=== PATIENT | female | born 1950 | race Caucasian/White ===

== ENCOUNTER → 2023-12-01 16:02 | Outpatient (REF) | payer MEDICARE, OTHER, SELFPAY | LOC: WDC 16:02 | PROVIDERS: ATTENDING PHYSICIAN Internal Medicine | DX: Z12.31 Encounter for screening mammogram for malignant neoplasm of breast (principal) | CPT/HCPCS: 77063; 77067 ==

== ENCOUNTER → 2024-03-14 15:46 | Outpatient (REF) | payer MEDICARE, OTHER, SELFPAY | LOC: HWRAD 15:46 | PROVIDERS: ATTENDING PHYSICIAN Internal Medicine | DX: R26.9 Unspecified abnormalities of gait and mobility (principal); Z86.73 Personal history of transient ischemic attack (TIA), and cerebral infarction without residual deficits | CPT/HCPCS: 70450 ==

== ENCOUNTER → 2024-03-24 10:50 | Outpatient (REF) | payer MEDICARE, OTHER, SELFPAY ==
[2024-03-24 12:15] LABS: % Basophils 0.6 % (0-2); % Immature Granulocytes 0.4 % (0-0.5); % Lymphocytes 27.8 % (20.5-51.1); % Monocytes 8.5 % (1.7-9.3); % Neutrophils 59.7 % (42.2-75.2); Absolute Eosinophils 0.2 10^3/uL (0-0.7); Absolute Lymphocytes 1.9 10^3/uL (1.2-3.4); Absolute Monocytes 0.6 10^3/uL (0.1-0.6); Hematocrit 43.7 % (37.0-47.0); Hemoglobin 14.8 g/dL (12.0-16.0); Mean Corp Hgb Conc. 33.9 g/dL (33.0-37.0); Mean Corpuscular Hgb 30.6 pg (27.0-31.0); Mean Corpuscular Volume 90.3 fL (81.0-99.0); Nucleated Red Blood Cells % 0 %; Platelet Count 374 10^3/uL (130-400); Red Blood Cell Count 4.84 10^6/uL (4.20-5.40); Red Cell Dist. Width 14.8 % (11.5-14.5); White Blood Cell Count 6.7 10^3/uL (4.8-10.8)
[2024-03-24 12:51] LABS: ALT (SGPT) 22 U/L (0-35); AST (SGOT) 24 U/L (14-36); Albumin 4.7 g/dl (3.5-5.0); Alkaline Phosphatase 100 U/L (38-126); Blood Urea Nitrogen 13 mg/dl (7-17); Calcium 10.7 mg/dl (8.4-10.2); Carbon Dioxide 25 mmol/L (22-30); Chloride 101 mmol/L (98-107); Glucose 132 mg/dl (70-99); HDL Cholesterol 72 mg/dl; LDL Cholesterol, Calculated 110 mg/dl; Potassium 4.7 mmol/L (3.5-5.1); Sodium 143 mmol/L (135-145); Total Bilirubin 0.5 mg/dl (0.2-1.3); Total Cholesterol 236 mg/dl (50-199); Total Protein 7.2 g/dl (6.3-8.2); Triglyceride 271 mg/dl (10-149); Very Low Density Lipoprotein 54 mg/dl (0-30); eGFR > 60.00
[2024-03-24 13:21] LABS: Glycohemoglobin (HgbA1c) 7.1 % (4.0-5.6)
[2024-03-24 14:29] LABS: Microalbumin, Random Urine 1.2 mg/dl (0.6-1.7); Microalbumin/creatinine Ratio 52.4 mg/g
== END ==
LOC: REG 10:50
PROVIDERS: ATTENDING PHYSICIAN Internal Medicine
DX: E11.69 Type 2 diabetes mellitus with other specified complication (principal)
CPT/HCPCS: 36415; 80053; 80061; 82043; 82570; 83036; 84443; 85025

== ENCOUNTER → 2024-03-31 11:33 | Outpatient (REF) | payer MEDICARE, OTHER, SELFPAY | LOC: MRI 3T 11:33 | PROVIDERS: ATTENDING PHYSICIAN Internal Medicine | DX: R26.9 Unspecified abnormalities of gait and mobility (principal); R29.898 Other symptoms and signs involving the musculoskeletal system; Z86.73 Personal history of transient ischemic attack (TIA), and cerebral infarction without residual deficits | CPT/HCPCS: 70551 ==

== ENCOUNTER → 2024-08-23 18:56 | Outpatient (REF) | payer MEDICARE, OTHER, SELFPAY | LOC: MRI 18:56 | PROVIDERS: ATTENDING PHYSICIAN Psychiatry & Neurology Neurology; FAMILY PHYSICIAN Internal Medicine | DX: I63.9 Cerebral infarction, unspecified (principal); I67.89 Other cerebrovascular disease | CPT/HCPCS: 70544; 70551 ==

== ENCOUNTER → 2024-08-24 06:34 | Outpatient (REF) | payer MEDICARE, OTHER, SELFPAY | LOC: MRI 3T 06:34 | PROVIDERS: ATTENDING PHYSICIAN Psychiatry & Neurology Neurology; FAMILY PHYSICIAN Internal Medicine | DX: I67.89 Other cerebrovascular disease (principal) | CPT/HCPCS: 70547 ==

== ENCOUNTER → 2024-10-27 11:14 | Outpatient (REF) | payer MEDICARE, OTHER, SELFPAY ==
[2024-10-27 11:40] LABS: % Basophils 0.7 % (0-2); % Eosinophils 3.9 % (0-6); % Immature Granulocytes 0.4 % (0-0.5); % Lymphocytes 33.2 % (20.5-51.1); % Monocytes 9.1 % (1.7-9.3); % Neutrophils 52.7 % (42.2-75.2); Absolute Basophils 0.1 10^3/uL (0-0.2); Absolute Eosinophils 0.3 10^3/uL (0-0.7); Absolute Lymphocytes 2.4 10^3/uL (1.2-3.4); Absolute Monocytes 0.7 10^3/uL (0.1-0.6); Absolute Neutrophils 3.9 10^3/uL (1.4-6.5); Hematocrit 46.6 % (37.0-47.0); Hemoglobin 15.7 g/dL (12.0-16.0); Mean Corp Hgb Conc. 33.7 g/dL (33.0-37.0); Mean Corpuscular Hgb 30.8 pg (27.0-31.0); Mean Corpuscular Volume 91.6 fL (81.0-99.0); Mean Platelet Volume 8.7 fL (7.4-10.4); Nucleated Red Blood Cells % 0 %; Platelet Count 411 10^3/uL (130-400); Red Blood Cell Count 5.09 10^6/uL (4.20-5.40); Red Cell Dist. Width 14.8 % (11.5-14.5); White Blood Cell Count 7.4 10^3/uL (4.8-10.8)
[2024-10-27 12:09] LABS: ALT (SGPT) 17 U/L (0-35); AST (SGOT) 18 U/L (14-36); Albumin 4.3 g/dl (3.5-5.0); Alkaline Phosphatase 96 U/L (38-126); Blood Urea Nitrogen 16 mg/dl (7-17); Calcium 10.4 mg/dl (8.4-10.2); Carbon Dioxide 28 mmol/L (22-30); Chloride 104 mmol/L (98-107); Glucose 118 mg/dl (70-99); Potassium 5.1 mmol/L (3.5-5.1); Sodium 141 mmol/L (135-145); Total Bilirubin 0.5 mg/dl (0.2-1.3); eGFR > 60.00
[2024-10-27 14:25] LABS: Glycohemoglobin (HgbA1c) 6.3 % (4.0-5.6)
== END ==
LOC: REG 11:14
PROVIDERS: ATTENDING PHYSICIAN Internal Medicine
DX: Z23 Encounter for immunization (principal); E11.69 Type 2 diabetes mellitus with other specified complication; F31.10 Bipolar disorder, current episode manic without psychotic features, unspecified; E78.5 Hyperlipidemia, unspecified; Z86.73 Personal history of transient ischemic attack (TIA), and cerebral infarction without residual deficits; F17.200 Nicotine dependence, unspecified, uncomplicated
CPT/HCPCS: 36415; 80053; 83036; 85025

== ENCOUNTER → 2024-11-21 13:36 | Outpatient (REF) | payer MEDICARE, OTHER, SELFPAY | LOC: WDC 13:36 | PROVIDERS: ATTENDING PHYSICIAN Internal Medicine | DX: Z12.31 Encounter for screening mammogram for malignant neoplasm of breast (principal) | CPT/HCPCS: 77063; 77067 ==

== ENCOUNTER 2025-03-10 07:44 | Inpatient (IN) | payer MEDICARE, OTHER, SELFPAY ==
[2025-03-10 03:13] VITALS: BMI 37.6
[2025-03-10 03:30] VITALS: BP 109/67
[2025-03-10 03:31] LABS: Hematocrit 38.5 % (37.0-47.0); Hemoglobin 12.9 g/dL (12.0-16.0); Mean Corp Hgb Conc. 33.5 g/dL (33.0-37.0); Mean Corpuscular Volume 91.7 fL (81.0-99.0); Nucleated Red Blood Cells % 0 %; Platelet Count 491 10^3/uL (130-400); Red Cell Dist. Width 14.6 % (11.5-14.5)
[2025-03-10 03:55] LABS: ALT (SGPT) 22 U/L (0-35); AST (SGOT) 15 U/L (14-36); Albumin 3.7 g/dl (3.5-5.0); Alkaline Phosphatase 114 U/L (38-126); Blood Urea Nitrogen 11 mg/dl (7-17); Calcium 9.2 mg/dl (8.4-10.2); Carbon Dioxide 27 mmol/L (22-30); Chloride 105 mmol/L (98-107); Estimated Creatinine Clearance 93 ml/min; Glucose 173 mg/dl (70-99); Potassium 4.1 mmol/L (3.5-5.1); Sodium 139 mmol/L (135-145); Total Protein 6.2 g/dl (6.3-8.2); eGFR > 60.00
[2025-03-10 04:08] LABS: Troponin I < 0.012 ng/ml
--- NOTE | 2025-03-10 04:33 | ED.GENMED ---
History of Present Illness
General
Chief Complaint: Chest Pain
Source: patient
Exam Limitations: none
Time Seen by Provider: 03/10/25 04:06
Nursing documentation reviewed up to this point in time: agreed with
History of Present Illness
History of Present Illness:
74-year-old female with past medical history of TIA, atrial fibrillation, hyperlipidemia, diabetes, GERD, anxiety who presents to the ER for evaluation of shortness of breath and chest pain. Patient reports that symptoms started tonight while she
was lying in bed around 2 AM she says she woke up and felt very short of breath and felt like she was gasping for air. She says she felt significant heaviness in her chest like something was sitting on her chest. She called EMS to bring her to the
hospital. EMS gave her aspirin and nitroglycerin as well as a DuoNeb. She says that that seemed to help with the heaviness in her chest but she still feels markedly short of breath. Aside from shortness of breath she says she has a cough�she says
that she went on a cruise 2 weeks ago and had mild cough on the last 2 days of the cruise but it had generally been improving until tonight where it seems a bit worse. She denies any recent fevers or chills. She denies any swelling or pain in the
legs. She denies any GI symptoms. She denies similar symptoms in the past.
Past History
Past History
ED Past Medical History: Cancer (Breast), GERD, Hypercholesterolemia, NIDDM, Psychiatric and Other (TIA)
ED Past Surgical History: Gynecological and Other
Social History
Tobacco: Smoker (Occasional)
Living: with family
Review of Systems
Review of Systems
All Other Systems: ROS reviewed and negative except as documented in HPI and ROS
Constitutional: Denies fever or chills
Respiratory: Reports cough and trouble breathing
Cardiac: Reports chest pain; Denies palpitations
ABD/GI: Denies abdominal pain, nausea or vomiting
: Denies flank pain
Musculoskeletal: Denies edema, neck pain or back pain
Neurological: Denies dizzy or headache
Phy Exam
Physical Exam
Physical Exam:
General: Awake, alert, oriented x3; no acute distress
Head: Normocephalic, atraumatic
Eyes: Conjunctiva normal, sclera anicteric
Throat: Airway intact, handling secretions
Neck: Trachea midline, no JVD
Lungs: Clear to auscultation bilaterally, no wheezing, rales, rhonchi; patient is tachypneic, hypoxic requiring 2 L nasal cannula
Heart: Regular rate and rhythm, no murmurs, gallops, or rubs
Abd: Soft, non distended, nontender
Neuro: Grossly intact
Extremities: No edema in extremities, no calf tenderness, equal pulses in all extremities
Scores
Heart Failure Risk
Heart Failure Risk Score: Not Applicable
Heart Score for Chest Pain Patients
STEMI patient?: Not applicable
Withdrawal Assessment of Alcohol
Withdrawal Assessment Completed?: Not applicable
Course
Orders/Labs/Results
Orders:
Orders
03/10/25 03:05
Electrocardiogram (*1) Urgent
Reason for Study: Other
Other Reason for Exam: Respiratory Distress
Cardiac Monitoring- Treatment ONCE
EKG- Treatment ONCE
IV Insert/Care/Rem.- Treatment PRN
CR Chest - 2 Views Urgent
Comment:
Reason For Exam: respiratory distress
O2 Therapy [RESP] Urgent
Titrate/Wean O2 to maintain O2 sat greater than (%): 93
Special Instructions: TO MAINTAIN CONTINUOUS O2 SATS >/= 93%
Pulse Ox/cont/shift [RESP] Urgent
Quantity: 1
Special Instructions: continuous pulse ox
03/10/25 03:22
Complete Blood Count/With Diff Urgent
Comprehensive Metabolic Panel Urgent
NT-proBNP Urgent
Troponin I Urgent
03/10/25 04:30
Azithromycin 500 mg/250 ml [Zithromax Infusion] 500 mg in 250 ml IV NOW
CefTRIAXone [Rocephin] 1,000 mg IV NOW STA
03/10/25 06:30
Troponin I Urgent
Abnormal Lab Results
03/10/25
03:22
WBC 17.7 H 10^3/uL
(4.8-10.8)
RDW 14.6 H %
(11.5-14.5)
Plt Count 491 H 10^3/uL
(130-400)
Abs Immat Gran (auto) 0.3 H 10^3/uL
(0-0.05)
Absolute Neuts (auto) 14.1 H 10^3/uL
(1.4-6.5)
Absolute Monos (auto) 0.9 H 10^3/uL
(0.1-0.6)
Immature Gran % 1.6 H %
(0-0.5)
Neutrophils % 79.4 H %
(42.2-75.2)
Lymphocytes % 11.3 L %
(20.5-51.1)
Glucose 173 H mg/dl
(70-99)
Total Protein 6.2 L g/dl
(6.3-8.2)
03/10/25 03:22
03/10/25 03:22
Vital Signs
Initial and Last Documented VS:
Initial Vital Signs
Pulse Ox
96
03/10/25 03:13
Last Documented Vital Signs
Pulse Resp BP Pulse Ox
92 28 109/67 91
03/10/25 03:45 03/10/25 03:45 03/10/25 03:30 03/10/25 03:45
MDM/Problems Addressed
Differential Diagnosis Includes:
Pneumonia, bronchitis, ACS, CHF, pulmonary embolism, anxiety/panic, GERD
MDM/Problems Addressed:
74-year-old female presents for evaluation of shortness of breath and chest heaviness associated with cough. Notably hypoxic and tachypneic requiring 2 L nasal cannula. Physical exam as above. EKG shows sinus rhythm not acutely ischemic. Labs
were sent off including a CBC which shows a leukocytosis to 17.7. Predominant neutrophils. CMP no clinically significant abnormalities. Troponin undetectable x 1�will repeat. proBNP not significantly elevated. Chest x-ray reviewed by me shows
left lower lobe pneumonia. With hypoxia and multiple SIRS criteria we will plan to admit for continued treatment. Will provide IV antibiotics. Discussed with hospitalist for admission.
*Radiology
Radiology exam reviewed: preliminary read by ED provider
*Pulse Oximetry
SaO2: 91
Nasal Cannula flow liters per minute: 4
Patient hypoxic: yes (86%)
*EKG
Interpreted by ED Provider?: Yes
Heart Rate: 88
Rate: normal
Rhythm: sinus
[place]: left axis deviation
Interval: normal interval
QRS Pattern: normal QRS
Ischemia: no ischemia
*Critical Care Note
Total Time (30-74mins, 75-104mins- exclusive of procedures): Not Applicable
Data Reviewed
Review of Other/Old Records Reveals: Labs and Records
Source: patient, records and ambulance crew
Patient Management
Discussion with other providers: Hospitalist (Discussed with hospitalist)
Escalation/DeEscalation of care consider admission/obs:
Admission indicated
ED Attending Note
-
Portions of this chart may have been created with voice recognition software.� Occasional wrong word or��sound alike� substitutions may have occurred due to the inherent limitations of voice recognition software.
Discharge Plan
Departure
Patient Disposition: Admit
Date of Disposition: 03/10/25
Time of Disposition: 04:38
Admit to doctor: Isiah
Presentation/result/management discussed w/ accepting MD/DO: Hospitalist
Discharge Problem:
Pneumonia, Acute hypoxic respiratory failure
Prescriptions:
No Action
lamotrigine [Lamictal] 150 MG tablet
150 mg PO HS
clopidogrel 75 MG tablet
75 mg PO HS
Biotin
10,000 mcg PO DAILY
Vitamin D3:
4,000 units PO DAILY
anastrozole 1 MG tablet
1 mg PO DAILY
metformin 500 mg Tablet
500 mg PO BID
rosuvastatin 10 mg Tablet
10 mg PO DAILY
calcium carb-D3-mag [id number] [phone] kh-dvnp-yh-mg Tablet
1 tab PO MOWEFR
mecobalamin (vitamin B12) [B12 Active] 1,000 mcg Tablet,Chewable
1,000 mcg PO DAILY
Ozempic 0.25 mg or 0.5 mg (2 mg/3 mL) Pen Injector
0.5 mg SC FR
fiber
3 cap PO Q48H
mupirocin 2 % ointment
1 applic topical BID Qty: 1 0RF
Patient Comments:
started treatment thursday01/04/23 and completed BID, last took at home 01/07/23 in am
aspirin 325 mg Tablet
325 mg PO DAILY Qty: 1 0RF
docusate sodium 100 mg Capsule
100 mg PO BID Qty: 1 0RF
magnesium hydroxide 400 mg/5 mL Suspension
30 ml PO DAILYPRN PRN (Reason: constipation) Qty: 30 0RF
sennosides [Senna Laxative] 8.6 mg Tablet
17.2 mg PO BID Qty: 2 0RF
Saccharomyces boulardii [Florastor] 250 mg capsule
250 mg PO BID Qty: 1 0RF
polyethylene glycol 3350 [Miralax] 17 gram Powder In Packet
17 g PO DAILY Qty: 0 0RF
alprazolam 1 MG tablet
1 mg PO PRN PRN (Reason: anxiety/sleep) Qty: 0 0RF
pantoprazole 40 MG tablet,delayed release (DR/EC)
40 mg PO HS Qty: 0 0RF
Rx Instructions:
take 12h apart from Plavix=--blocks absorption
hydrocodone-acetaminophen 5-325 mg tablet
1 tab PO Q6H PRN (Reason: 1 tab moderate pain or 2 if severe) Qty: 28 0RF
Rx Instructions:
Dx orthopedic surgery
ongoing therapy
cefadroxil 500 mg capsule
500 mg PO BID Qty: 14 0RF
Rx Instructions:
*Take w/ food
*Take w/ probiotic
*POST-OP USE
ondansetron [ondansetron] 4 mg tablet,disintegrating
4 mg PO Q6H PRN (Reason: n/v) Qty: 20 1RF
Rx Instructions:
take 1/2h b/f [place] if recurrent nausea
Referrals:
Maria Esther Renee NP [Family Provider, Internal Medicine]
Interventions
Interventions:
*Risk Screen - Suicide Last Done: 03/10/25 03:05
*General Assessment Last Done: 03/10/25 03:13
*Neglect/Abuse Screening Last Done: 03/10/25 03:05
*ED- Fall Risk Assessment Last Done: 03/10/25 03:13
*ED COVID-19 Vaccine History Last Done: 03/10/25 03:13
ED- Cardiac Assessment Last Done: 03/10/25 03:13
Discharge Date and Time
Print Language: NEPALI
[2025-03-10] MEDS: ROCEPHIN 1000 MG IV (05:07)
[2025-03-10] MEDS: ZITHROMAX INFUSION 250 IV (05:08)
[2025-03-10 05:23] LABS: COVID-19 Antigen Negative (Negative)
--- NOTE | 2025-03-10 06:50 | HPS.HSE ---
Family Physician
-
Family Physician: Maria Esther Renee
Chief Complaint
-
Chest pain / SOB
History of Present Illness
Patient is a 74y F with PMH significant for prior TIA, hypertension and diet-controlled DM who presents to ED complaining of chest pain and dyspnea that woke her from sleep. Patient reports cough / cold symptoms about 10 days ago. Has felt
improved for the past week. This evening woke around 2 AM with chest heaviness and unable to get her breath. She states that dyspnea as quite severe. No prior history of similar symptoms. She presented to the ED for further evaluation.
At the time of my examination, patient states that she feels much improved.
She traveled for a cruise about 2 weeks ago. No other recent travel.
Patient is a current some-day smoker with long history of smoking and > 30 pack years total use.
Medical History
Past Medical History
Past Medical History: Reports Other
Additional Past Medical History:
TIA x 2
Bipolar Disorder
Migraines
Diet-Controlled DM-II
Obesity
Breast Cancer
Past Surgical History: Reports Other
Additional Past Surgical History:
Lap Band / Removal
SELAM / BSO
Cataracts
Left DANILO
Left Lumpectomy
Rectal Abscess (x 2)
Social History
Tobacco: Smoker (Currentn some day smoker. > 30 pack years total.)
Alcohol: None
Drug: None
Family History
Family History: Not pertinent
Allergies / Home Medications
Allergies reflects when Allergies were last updated in [facility].
Home Medications with original date entered in [facility]
Allergy/Medication List:
Allergies
Allergy/AdvReac Type Severity Reaction Status Date / Time
oxycodone Allergy patient Verified 03/10/25 03:04
recently
took
without
any
problems
tetracycline Allergy Rash/ITCHIN Verified 03/10/25 03:04
G
Home Medications
Biotin 10,000 mcg PO DAILY 01/16/21
Vitamin D3: 4,000 units PO DAILY 01/16/21
calcium 333 mg-vit D3 200 unit-magnesium 133 mg-zinc 5 mg tablet 1 tab PO MOWEFR 12/04/22
mecobalamin (vitamin B12) 1,000 mcg chewable tablet (B12 Active) 1,000 mcg PO DAILY 12/04/22
clopidogrel 75 mg tablet 75 mg PO DAILY 03/10/25
lamotrigine 100 mg tablet (Lamictal) 50 mg PO Q48H 03/10/25
lamotrigine 100 mg tablet (Lamictal) 100 mg PO Q48H 03/10/25
Review of Systems
-
History Source: Patient
A 12 point ROS was completed and negative except as noted: Yes
Constitutional: Reports Fatigue; Denies Fever or Chills
EENT: Denies Sore Throat
Respiratory: Reports Cough and Trouble Breathing
Cardiac: Reports Chest Pain; Denies Palpitations or Syncope
Abdomen/GI: Denies Abdominal Pain, Nausea, Vomiting or Diarrhea
: Denies Dysuria or Frequency
Musculoskeletal: Denies Joint Pain or Edema
Neurological: Denies Dizzy or Headache
Physical Exam
Vital Signs
Vital Signs
Temp Pulse Resp BP Pulse Ox
98.3 F 80 24 109/67 92
03/10/25 04:34 03/10/25 05:15 03/10/25 05:15 03/10/25 03:30 03/10/25 05:15
Physical Exam
General: Other (74y F in no acute distress)
HEENT: Moist mucous membranes and PERRLA
Respiratory: Other (Bibasilar rhonchi / wheezing.)
Cardiac: S1/S2 and Regular Rhythm; No Murmur
GI: Soft, Non Tender, Non Distended and Normal Bowel Sounds
Musculoskeletal: No Clubbing, No Cyanosis and No Edema
Neuro: AO x 3
Laboratory Results
-
03/10/25 03:22
03/10/25 03:22
Laboratory Results
Total Bilirubin 0.4 mg/dl (0.2-1.3) 03/10/25 03:22
AST 15 U/L (14-36) 03/10/25 03:22
ALT 22 U/L (0-35) 03/10/25 03:22
Alkaline Phosphatase 114 U/L (38-126) 03/10/25 03:22
Troponin I < 0.012 ng/ml 03/10/25 03:22
Impression/Plan
-
A/P: Patient is a 74y F with PMH significant for TIA and bipolar depression who presents to ED complaining of chest heaviness and SOB.
Bibasilar Pneumonia
Sepsis secondary to the above
- Admit for further evaluation and treatment.
- Patient presents with leukocytosis, tachycardia, tachypnea and CXR / CT showing basilar opacities.
- COVID / flu negative in the ED.
- CTA with no obvious evidence of PE (formal report pending).
- Continue abx with ceftriaxone and azithromycin.
- Supportive care including nebs, O2, etc.
- Follow for clinical improvement.
Atypical Chest Pain
- Likely secondary to underlying pulmonary infectious process.
- Initial troponin undetectable and EKG without evident ischemia.
- Follow serial troponin. Monitor for any new / recurrent symptoms.
ASCVD / Prior TIA
- Stable. Continue clopidogrel.
Diet-Controlled DM-II
- Stable. Continue DM diet.
- Follow glucose and cover with SSI if needed.
- Update A1C.
Bipolar Disorder
- Stable. Patient reports that she has been very slowly weaning off of Lamictal.
- Continue current dose.
Obesity due to excess calories
- Affects all aspects of care.
- Encourage healthy diet and increased exercise with goal of weight loss.
DVT Prophylaxis: Lovenox
Code Status: Full
[2025-03-10 08:10] LABS: Troponin I < 0.012 ng/ml
[2025-03-10] MEDS: TYLENOL 650 MG PO ×2 (09:42→12:59)
[2025-03-10] MEDS: ZOFRAN 4 MG IV (09:45)
[2025-03-10 11:54] VITALS: BP 122/74; BMI 34.5
[2025-03-10 12:14] LABS: Glucose - Point of Care 131 mg/dl (70-99)
[2025-03-10 12:19] VITALS: BMI 34.5
--- NOTE | 2025-03-10 12:57 | PTOTSP ---
Speech Language Pathology
Pt seen for clinical bedside swallow evaluation. Pt endorsed 6 months of dysphagia, which has been stable. She describes the following: food sticking mid-chest, coughing with liquids at times, constant globus sensation (even in absence of P.O.
intake), hoarse vocal quality. Pt with hx of esophagitis on EGD in 2021, and CT chest showed esophageal wall thickening with questionable esophagitis. This date, P.O. trials of puree, regular solids, and thin liquids provided. Adequate
mastication, bolus formation, and A-P transit noted with no oral residue. No overt signs of aspiration. Suspect esophageal etiology of symptoms. If GI workup completed either inpatient or outpatient and is unrevealing, can complete outpatient VSE.
Recommend:
(1) GI consult, either inpatient or outpatient
(2) Can consider outpatient VSE if GI workup unrevealing
(3) Regular solids/thin liquids
(4) General aspiration precautions
(5) Esophageal precautions
(6) Meds as tolerated
(7) FITTER PLACER to sign off. Please reconsult as indicated
[2025-03-10] MEDS: NSS 1000 IV (12:58)
[2025-03-10] MEDS: MUCINEX 600 MG PO ×2 (12:59→20:32)
[2025-03-10] MEDS: PLAVIX 75 MG PO (12:59)
[2025-03-10] MEDS: COMPAZINE 5 MG IV (12:59)
[2025-03-10 13:00] LABS: Troponin I < 0.012 ng/ml
[2025-03-10] MEDS: DUONEB 3 ML INH ×3 (13:24→18:10)
[2025-03-10] MEDS: NOVOLOG FLEXPEN-LOW RESISTANCE SC ×2 (13:36→16:55)
[2025-03-10 15:00] VITALS: BP 132/68
[2025-03-10 16:51] LABS: Glucose - Point of Care 122 mg/dl (70-99)
[2025-03-10] MEDS: LOVENOX 40 MG SC (17:18)
[2025-03-10 18:35] LABS: Troponin I < 0.012 ng/ml
[2025-03-10 20:08] VITALS: BP 121/74
[2025-03-10] MEDS: LAMICTAL 100 MG PO (20:32)
[2025-03-10] MEDS: TESSALON PERLES 200 MG PO (21:16)
[2025-03-10 21:35] LABS: Glucose - Point of Care 135 mg/dl (70-99)
[2025-03-10] MEDS: ROBITUSSIN 200 MG PO (23:21)
[2025-03-10 23:51] VITALS: BP 127/70
[2025-03-11] VITALS (8 sets, daily range): BP systolic 100–131; BP diastolic 57–73; PULSE 77–82
[2025-03-11 00:16] LABS: Troponin I < 0.012 ng/ml
[2025-03-11] MEDS: TESSALON PERLES 200 MG PO ×3 (02:54→21:44)
[2025-03-11] MEDS: NSS 1000 IV ×2 (05:28→17:48)
[2025-03-11] MEDS: DUONEB 3 ML INH ×4 (07:24→20:10)
[2025-03-11 08:07] LABS: Glucose - Point of Care 170 mg/dl (70-99)
[2025-03-11] MEDS: ROBITUSSIN 200 MG PO ×2 (08:13→22:44)
[2025-03-11] MEDS: ROCEPHIN 1000 MG IV (08:14)
[2025-03-11] MEDS: STERILE WATER FOR INJECTION 10 ML IV (08:14)
[2025-03-11] MEDS: ZITHROMAX 250 MG PO (08:14)
[2025-03-11] MEDS: PLAVIX 75 MG PO (08:14)
[2025-03-11] MEDS: MUCINEX 600 MG PO ×2 (08:14→19:53)
[2025-03-11 08:15] LABS: Hematocrit 34.8 % (37.0-47.0); Hemoglobin 11.9 g/dL (12.0-16.0); Mean Corp Hgb Conc. 34.2 g/dL (33.0-37.0); Mean Corpuscular Volume 89.5 fL (81.0-99.0); Platelet Count 412 10^3/uL (130-400); Red Cell Dist. Width 14.9 % (11.5-14.5)
[2025-03-11] MEDS: NOVOLOG FLEXPEN-LOW RESISTANCE SC ×3 (08:28→18:40)
[2025-03-11 09:04] LABS: Blood Urea Nitrogen 7 mg/dl (7-17); Calcium 8.6 mg/dl (8.4-10.2); Carbon Dioxide 22 mmol/L (22-30); Chloride 108 mmol/L (98-107); Estimated Creatinine Clearance 103 ml/min; Glucose 124 mg/dl (70-99); HDL Cholesterol 38 mg/dl; LDL Cholesterol, Calculated 67 mg/dl; Potassium 4.3 mmol/L (3.5-5.1); Sodium 137 mmol/L (135-145); Very Low Density Lipoprotein 19 mg/dl (0-30); eGFR > 60.00
[2025-03-11 10:35] LABS: Glycohemoglobin (HgbA1c) 6.5 % (4.0-5.6)
[2025-03-11 12:09] LABS: Glucose - Point of Care 78 mg/dl (70-99)
--- NOTE | 2025-03-11 12:30 | W.PN.HOSP.TC ---
Today's Communication/Plan
-
Continue with ceftriaxone and Zithromax
Follow culture data
Continue with nebulizers.
Follow telemetry for any arrhythmias.
Assessment / Plan
Assessment / Plan
A/P: Patient is a 74y F with PMH significant for TIA and bipolar depression who presents to ED complaining of chest heaviness and SOB.
Bibasilar Pneumonia
Sepsis secondary to the above
- Patient presents with leukocytosis, tachycardia, tachypnea and CXR / CT showing basilar opacities.
- COVID / flu negative in the ED.
- CTA with no obvious evidence of PE but showed bibasilar consolidation concerning for pneumonia
- Continue abx with ceftriaxone and azithromycin.
- Supportive care including nebs, O2, etc.
- Follow for clinical improvement.
- If continued wheezing we will consider steroids
Atypical Chest Pain
- Likely secondary to underlying pulmonary infectious process.
- Initial troponin undetectable and EKG without evident ischemia.
- Follow serial troponin. Monitor for any new / recurrent symptoms.
- Patient primary symptom for the hospital was chest pressure, palpitation and acute shortness of breath. She has history of an arrhythmia before apparently. Rule out arrhythmia. Rule out A-fib. Continue director furniture.
Esophageal wall thickening-noted on chest CT on admission. Patient has history of reflux and sometimes sensation of globus and food getting stuck. She had an endoscopy 2 years ago which showed superficial squamous cell epithelium with vascular
congestion in the distal esophagus. I will start on daily PPI and I advised patient today to return back to her GI for repeat endoscopy. Also advised against the as needed Naprosyn.
ASCVD / Prior TIA
- Stable. Continue clopidogrel.
Diet-Controlled DM-II
- Stable. Continue DM diet.
- Follow glucose and cover with SSI if needed.
- Update A1C.
Bipolar Disorder
- Stable. Patient reports that she has been very slowly weaning off of Lamictal.
- Continue current dose.
Obesity due to excess calories
- Affects all aspects of care.
- Encourage healthy diet and increased exercise with goal of weight loss.
DVT Prophylaxis: Lovenox
Code Status: Full
Prior chart regarding EGD noted.
Total time spent on today's encounter was 52 minutes which included time spent in counseling the patient/family regarding diagnosis and treatment plan as listed above, goals of care, and symptom management. Case was discussed with nursing staff,
specialists, and care coordinators/case management. All labs and imaging personally reviewed by me. Remainder the time spent in detailed review of previous records, lab data, imaging, and other medical provider documentation.
Anticipated Discharge: 24 - 48 hours
Subjective/Interval History
-
Date of Service: March 11, 2025
Patient says the reason for presentation to the hospital was sudden onset of shortness of breath, palpitation and chest heaviness in the middle of the night. She was having a prodrome of cough and wheezing and conjunctivitis.
She continues to feel wheezy and has cough which is productive.
No fever or chills.
No nausea vomiting.
No chest pain.
Objective Data
-
Labs:
Laboratory Results
03/11/25
07:11
WBC 13.6 H
Hgb 11.9 L
Hct 34.8 L
Plt Count 412 H
Sodium 137
Potassium 4.3
Chloride 108 H
Carbon Dioxide 22
BUN 7
Creatinine 0.6
Glucose 124 H
Calcium 8.6
Vital Signs:
Vital Signs
Temp Pulse Resp BP Pulse Ox
98.8 F 84 16 110/73 91
03/11/25 11:15 03/11/25 11:19 03/11/25 11:19 03/11/25 11:15 03/11/25 11:59
I&O
03/10/25 03/11/25 03/12/25
06:59 06:59 06:59
Intake Total 2060 / 2060
Output Total 500 / 500
Balance 1559
Physical Exam
-
General: Comfortable
Respiratory: Wheezes and Non Labored Respirations; Negative Accessory Resp Muscle Use
Cardiac: Regular Rhythm and S1/S2; Negative Tachycardic
GI: Soft
Musculoskeletal: No Edema
Neuro: AO x 3
Psych: Calm; Negative Confused
Data Reviewed
-
Labs: Labs Reviewed by me
[2025-03-11] MEDS: PROTONIX 40 MG PO (12:40)
[2025-03-11] MEDS: COMPAZINE 5 MG IV (15:26)
[2025-03-11 17:19] LABS: Glucose - Point of Care 157 mg/dl (70-99)
[2025-03-11] MEDS: LOVENOX 40 MG SC (17:45)
[2025-03-11] MEDS: LAMICTAL 50 MG PO (19:55)
[2025-03-11 21:20] LABS: Glucose - Point of Care 164 mg/dl (70-99)
[2025-03-12] VITALS (7 sets, daily range): BP systolic 106–131; BP diastolic 68–84; PULSE 72; BMI 34.9
[2025-03-12] MEDS: NSS 1000 IV (03:51)
[2025-03-12] MEDS: ROBITUSSIN 200 MG PO ×3 (04:19→21:36)
[2025-03-12] MEDS: VENTOLIN NEBULES 2.5 MG INH (04:36)
[2025-03-12] MEDS: TESSALON PERLES 200 MG PO ×2 (05:49→14:47)
[2025-03-12 06:49] LABS: Hematocrit 35.0 % (37.0-47.0); Hemoglobin 11.6 g/dL (12.0-16.0); Mean Corp Hgb Conc. 33.1 g/dL (33.0-37.0); Mean Corpuscular Volume 90.4 fL (81.0-99.0); Platelet Count 388 10^3/uL (130-400); Red Cell Dist. Width 14.8 % (11.5-14.5)
[2025-03-12 07:11] LABS: Glucose - Point of Care 155 mg/dl (70-99)
[2025-03-12] MEDS: DUONEB 3 ML INH ×2 (07:18→11:18)
[2025-03-12] MEDS: NOVOLOG FLEXPEN-LOW RESISTANCE 1 UNITS SC ×2 (09:41→17:49)
[2025-03-12] MEDS: PLAVIX 75 MG PO (09:42)
[2025-03-12] MEDS: PROTONIX 40 MG PO (09:42)
[2025-03-12] MEDS: ROCEPHIN 1000 MG IV (09:42)
[2025-03-12] MEDS: MUCINEX 600 MG PO (09:42)
[2025-03-12] MEDS: ZITHROMAX 250 MG PO (09:42)
[2025-03-12] MEDS: FLUSH (NSS) 1 FLUSH IV (09:43)
[2025-03-12] MEDS: STERILE WATER FOR INJECTION 10 ML IV (09:43)
[2025-03-12 11:16] LABS: Glucose - Point of Care 102 mg/dl (70-99)
--- NOTE | 2025-03-12 11:28 | W.PN.HOSP.TC ---
Today's Communication/Plan
-
CW Current abx regimen
DC planning
Assessment / Plan
Assessment / Plan
A/P: Patient is a 74y F with PMH significant for TIA and bipolar depression who presents to ED complaining of chest heaviness and SOB.
Bibasilar Pneumonia
Sepsis secondary to the above
- Patient presents with leukocytosis, tachycardia, tachypnea and CXR / CT showing basilar opacities.
- COVID / flu negative in the ED.
- CTA with no obvious evidence of PE but showed bibasilar consolidation concerning for pneumonia
- Continue abx with ceftriaxone and azithromycin. Clinically improving. No fever. Normalized white count. No tachycardia.
- Supportive care including nebs prn
Atypical Chest Pain
- Likely secondary to underlying pulmonary infectious process.
- Initial troponin undetectable and EKG without evident ischemia.
- Monitor for any new / recurrent symptoms.
- Patient primary symptom for the hospital was chest pressure, palpitation and acute shortness of breath. She has history of an arrhythmia before apparently. Rule out arrhythmia. Rule out A-fib. 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
afib/flutter.
Esophageal wall thickening-noted on chest CT on admission. Patient has history of reflux and sometimes sensation of globus and food getting stuck. She had an endoscopy 2 years ago which showed superficial squamous cell epithelium with vascular
congestion in the distal esophagus. cw daily PPI and I advised patient to return back to her GI for repeat endoscopy. Also advised against the as needed Naprosyn.
ASCVD / Prior TIA
- Stable. Continue clopidogrel.
Diet-Controlled DM-II
- Stable. Continue DM diet.
- Follow glucose and cover with SSI if needed.
- Update A1C.
Bipolar Disorder
- Stable. Patient reports that she has been very slowly weaning off of Lamictal.
- Continue current dose.
Obesity due to excess calories
- Affects all aspects of care.
- Encourage healthy diet and increased exercise with goal of weight loss.
DVT Prophylaxis: Lovenox
Code Status: Full
Reaching medical stability from pneumonia standpoint for dc .If remains stable dc in am.
Anticipated Discharge: Within 24 hours
Subjective/Interval History
-
Date of Service: March 12, 2025
Feeling improved. The cough ongoing but less productive. No shortness of breath. No palpitations.
No nausea or vomiting. Tolerating diet. No fever or chills.
Objective Data
-
Labs:
Laboratory Results
03/12/25
06:06
WBC 9.4
Hgb 11.6 L
Hct 35.0 L
Plt Count 388
Vital Signs:
Vital Signs
Temp Pulse Resp BP Pulse Ox
98.1 F 79 16 114/68 96
03/12/25 07:00 03/12/25 11:19 03/12/25 11:19 03/12/25 07:00 03/12/25 09:33
I&O
03/11/25 03/12/25 03/13/25
06:59 06:59 06:59
Intake Total 2059
Output Total 500 / 500
Balance 1559
Physical Exam
-
General: Comfortable
Respiratory: Crackles (few in left base) and Non Labored Respirations; Negative Wheezes (today) or Accessory Resp Muscle Use
Cardiac: Regular Rhythm and S1/S2; Negative Tachycardic
GI: Soft
Neuro: AO x 3
Psych: Calm
Data Reviewed
-
Labs: Labs Reviewed by me
[2025-03-12] MEDS: NOVOLOG FLEXPEN-LOW RESISTANCE SC (11:49)
--- NOTE | 2025-03-12 13:42 | CM ---
Initial assessment completed with patient who lives alone in a 1 story condo with 5 steps to enter. 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 Does have a 3 wheel triangular walker, SPC and bed rail. Uses as needed. No in-home
services. Patient sees a vestibular therapist
as an outpatient. She has a history of bipolar and has had 1 hospital admission approximately 12 years ago. Does have a HC-POA. No VA benefits. MARINE EQUIPMENT PRESERVATION INSPECTOR is Maria Esther Renee with [facility]. Discharge POC: Home with no needs.
--- NOTE | 2025-03-12 14:49 | PTCARENOTE ---
Pt transferred to room 430 via wheelchair with all belongings; no c/o at times of transfer. Report given to Lynnette FITZGERALD.
--- NOTE | 2025-03-12 15:45 | PTCARENOTE ---
Rec'd pt from transferring unit. Pt denies pain. Pt provided prn medication for cough, will monitor for effectiveness. Pt call zelaya placed within reach, pt instructed to ring for assistance, verbalized understanding. will cont to monitor.
[2025-03-12 15:52] LABS: Glucose - Point of Care 167 mg/dl (70-99)
[2025-03-12] MEDS: TYLENOL 650 MG PO ×2 (17:48→21:33)
[2025-03-12] MEDS: LOVENOX 40 MG SC (17:49)
[2025-03-12 20:59] LABS: Glucose - Point of Care 161 mg/dl (70-99)
[2025-03-12] MEDS: LAMICTAL 100 MG PO (21:34)
[2025-03-12] MEDS: MUCINEX PO (22:51)
[2025-03-13] MEDS: COMPAZINE 5 MG IV (01:23)
[2025-03-13] MEDS: TESSALON PERLES 200 MG PO ×2 (01:32→16:02)
[2025-03-13 03:25] VITALS: BP 118/69
[2025-03-13 06:00] VITALS: BMI 34.6
[2025-03-13 07:14] LABS: Glucose - Point of Care 149 mg/dl (70-99)
--- NOTE | 2025-03-13 07:27 | W.PN.HOSP.TC ---
Today's Communication/Plan
-
Discharge today
Assessment / Plan
Assessment / Plan
Physical Exam
General: Comfortable
Respiratory: Crackles (few in left base) and Non Labored Respirations; Negative Wheezes (today) or Accessory Resp Muscle Use
Cardiac: Regular Rhythm and S1/S2; Negative Tachycardic
GI: Soft
MSK: RUE forearm with mild swelling, erythema and tenderness, but no drainage. RUE digits with good capillary refill in all 5 digits. RUE neurovascularly intact with no cyanosis or pallor present.
Neuro: AO x 3
Psych: Calm
Assessment/Plan
Patient is a 74y F with PMH significant for TIA and bipolar depression who presents to ED complaining of chest heaviness and SOB.
Bibasilar Pneumonia
Sepsis secondary to the above
- Patient presents with leukocytosis, tachycardia, tachypnea and CXR / CT showing basilar opacities.
- COVID / flu negative in the ED.
- CTA with no obvious evidence of PE but showed bibasilar consolidation concerning for pneumonia
- Continue abx with ceftriaxone and azithromycin --> on discharge: plan for Cefpodoxime and Azithromycin.
- Clinically improving. No fever. Normalized white count. No tachycardia.
- Supportive care including nebs prn
- Repeat CXR ordered essentially the same although radiologist mentioned that it looks worse
Atypical Chest Pain
- Likely secondary to underlying pulmonary infectious process.
- Initial troponin undetectable and EKG without evident ischemia.
- Monitor for any new / recurrent symptoms.
- Patient primary symptom for the hospital was chest pressure, palpitation and acute shortness of breath. She has history of an arrhythmia before apparently. Rule out arrhythmia. Rule out A-fib. 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
afib/flutter.
Mild right forearm discomfort and erythema from the intravenous line and IV insertion in that area previously
Superficial Venous Thrombosis
-Concern for thrombophlebitis
-Patient denied any numbness and tingling in the RUE
-RUE US: isolated thrombus in the cephalic vein
Esophageal wall thickening
History of reflux and sometimes sensation of globus and food getting stuck
-Noted on chest CT on admission. Patient has history of reflux and sometimes sensation of globus and food getting stuck. She had an endoscopy 2 years ago which showed superficial squamous cell epithelium with vascular congestion in the distal
esophagus. 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 Also advised against the as needed Naprosyn.
ASCVD / Prior TIA
- Stable. Continue clopidogrel.
Diet-Controlled DM-II
- Stable. Continue DM diet.
- Follow glucose and cover with SSI if needed.
- Update A1C.
Bipolar Disorder
- Stable. Patient reports that she has been very slowly weaning off of Lamictal.
- Continue current dose.
Obesity due to excess calories
- Affects all aspects of care.
- Encourage healthy diet and increased exercise with goal of weight loss.
DVT Prophylaxis: Lovenox
Code Status: Full Code
I spoke to patient multiple times today, and explained the plan of care going forward and on discharge. I answered all of her questions and concerns to satisfaction.
More than 30 minutes spent in discharge including
Final examination of the patient
Summarizing hospital stay
Instructions for continuing care to all relevant caregivers
Preparation of discharge records, prescriptions, and referral forms
Total time spent (in minutes): 42
Anticipated Discharge: Today
Subjective/Interval History
-
Date of Service: March 13, 2025
Patient was seen and examined. She reported that she has no chest pain or shortness of breath. She denied any fever. She does have mild right forearm discomfort and mild redness from the IV line and IV insertion in that area previously.
Objective Data
-
Vital Signs:
Vital Signs
Temp Pulse Resp BP Pulse Ox
97.5 F 68 20 118/69 94
03/13/25 03:25 03/13/25 03:25 03/13/25 03:25 03/13/25 03:25 03/13/25 03:25
I&O
03/12/25 03/13/25 03/14/25
06:59 06:59 06:59
Intake Total 0 / 0 600 / 600
Balance 1859 / 1859 600 / 600
[2025-03-13 07:30] VITALS: BP 125/74
[2025-03-13] MEDS: NOVOLOG FLEXPEN-LOW RESISTANCE SC ×3 (07:42→17:41)
[2025-03-13] MEDS: PLAVIX 75 MG PO (08:34)
[2025-03-13] MEDS: MUCINEX 600 MG PO (08:34)
[2025-03-13] MEDS: ROCEPHIN IV ×2 (08:34→10:06)
[2025-03-13] MEDS: STERILE WATER FOR INJECTION 10 ML IV (08:34)
[2025-03-13] MEDS: PROTONIX 40 MG PO (08:34)
[2025-03-13] MEDS: ZITHROMAX 250 MG PO (08:35)
--- NOTE | 2025-03-13 08:59 | VATNOTE ---
Attempted x2 to place new PIV, but unsuccessful. Patient requests no further attempts at this time. AMILCAR Winter updated and states will check with MD about need for IV. Phlebitis at old IV site noted, recommend intermittent heat to area.
[2025-03-13 11:30] VITALS: BP 114/82
--- NOTE | 2025-03-13 12:26 | CM ---
Chart reviewed home when stable.
Plan; Home no needs when stable.
[2025-03-13 12:43] LABS: Glucose - Point of Care 90 mg/dl (70-99)
--- NOTE | 2025-03-13 12:46 | PTCARENOTE ---
This morning when IV abx was to be given, pt's IV site very red and warm to touch. IVT notified and Dr Jeter aware. IV abx held and Pt for US of RUE.
--- NOTE | 2025-03-13 14:27 | CON.PUL ---
Consultation
Consultation Request
Date/Time Consultation Requested: 03/13/25
Date/Time Consultation Performed: 03/13/25
Performing Provider: Veronica
Reason for Consultation: PNA
Medical History
-
History of Present Illness:
74-year-old female with history of TIA, hypertension, diabetes, obesity presenting to ER with chest pain and dyspnea that woke her from sleep. She had complaints of cough, URI complaints that started about 10 days ago, chest x-ray demonstrating
possible left lower lobe consolidation representing possible pneumonia. She is a current smoker, over 30 years of total pack use. Chest x-ray obtained demonstrating similar findings, she has been treated with IV antibiotics since admission. She
has ongoing cough complaints.
Past Medical History
Past Medical History: Other (see list below)
Social History
Tobacco: Smoker
Alcohol: None
Drug: None
Family History
Family History: Reviewed & Not Pertinent
Allergies / Home Medications
Allergies
Allergy/AdvReac Type Severity Reaction Status Date / Time
oxycodone Allergy patient Verified 03/10/25 03:04
recently
took
without
any
problems
tetracycline Allergy Rash/ITCHIN Verified 03/10/25 03:04
G
Home Medications
�Medication �Instructions �Recorded �Confirmed �Last Taken �Type
biotin 1 mg tablet 1 mg PO DAILY Supplement ##0 01/16/21 03/10/25 1 Week Ago History
~12/31/22
cholecalciferol (vitamin D3) 25 25 mcg PO QPM Supplement ##0 01/16/21 03/10/25 1 Week Ago History
mcg (1,000 unit) tablet (Vitamin ~12/31/22
D3)
clopidogrel 75 mg tablet 75 mg PO QPM Blood Clot 03/10/25 03/10/25 Unknown History
Prevention/Tx
cyanocobalamin (vitamin B-12) 1,000 mcg PO QPM Supplement 03/10/25 03/10/25 Unknown History
1,000 mcg tablet
lamotrigine 150 mg tablet 75 mg PO Q48H@1999 Seizures 03/10/25 03/10/25 Unknown History
(Lamictal)
lamotrigine 150 mg tablet 150 mg PO Q48H@1999 Seizures 03/10/25 03/10/25 Unknown History
(Lamictal)
magnesium oxide 400 mg PO HS Supplement 03/10/25 03/10/25 Unknown History
metformin 500 mg tablet,extended 500 mg PO BID@ Diabetes 03/10/25 03/12/25 Unknown History
release 24 hr
naproxen sodium 220 mg tablet 220 mg PO Q8HPRN PRN MILD PAIN 03/10/25 03/10/25 Unknown History
(Aleve)
pantoprazole 40 mg tablet,delayed 40 mg PO DAILYPRN PRN GERD 03/10/25 03/10/25 Unknown History
release (Protonix)
tirzepatide 2.5 mg/0.5 mL 2.5 mg SC WE Diabetes 03/10/25 03/10/25 03/01/25 History
subcutaneous pen injector
(Mounjaro)
Review of Systems
-
History Source: Patient
All other systems: Negative unless noted
Vitals / Labs / Diagnostic Testing
Vital Signs
Temp Pulse Resp BP Pulse Ox
98.0 F 75 18 114/82 95
03/13/25 11:30 03/13/25 11:30 03/13/25 11:30 03/13/25 11:30 03/13/25 11:30
Lab Data
03/12/25 06:06
03/11/25 07:11
Microbiology
03/10/25 12:52 Blood/Venous Blood Culture - Preliminary
No Growth in 72 hours- Final report to follow
03/10/25 12:17 Blood/Venous Blood Culture - Preliminary
No Growth in 72 hours- Final report to follow
03/11/25 01:45 Urine Legionella Urinary Antigen - Final
Negative for Legionella pneumophila Serogroup 1 antigen.
A negative result does not rule out the possiblity of
Legionella infection due to other serogroups or species of
Legionella. Clinical correlation is recommended.
03/11/25 01:45 Urine Streptococcus pneumoniae Antigen (M - Final
Negative for Streptococcus pneumoniae antigen.
A negative result does not exclude infection with
Streptococcus pneumoniae. Clinical correlation is
recommended.
Diagnostic Testing:
Physical Exam
-
HEENT: Normocephalic, Anicteric and Moist Mucous Membranes
Cardiovascular: S1/S2 and Regular Rhythm
Respiratory: Rhonchi and Non-Labored Respirations
GI: Soft, Non Distended and Non Tender
Neurology: Awake, Alert, Oriented and No Motor Deficits
Skin: Warm, Dry, Good Color and Other (Erythema over R forearm)
General: Comfortable and Other (NAD)
Assessment
-
74-year-old female with history of TIA, hypertension, diabetes, obesity presenting to ER with chest pain and dyspnea that woke her from sleep. She had complaints of cough, URI complaints that started about 10 days ago, chest x-ray demonstrating
possible left lower lobe consolidation representing possible pneumonia. She is a current smoker, over 30 years of total pack use. Chest x-ray obtained demonstrating similar findings, she has been treated with IV antibiotics since admission. She
has ongoing cough complaints. We are consulted for evaluation of chest imaging 03/13/25.
LLL PNA
Bronchiectasis
Cough, sputum production
Current smoker
RUE superficial VTE
Leukocytosis
Conditions present SLOT ROUTER
Bipolar affective, manic
Gastroesophageal reflux disease with esophagitis
Adenomatous polyp of colon, Duodenum tumor removal (12/2018)
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 Redmond/Estrogen receptor positive status (ER+)
s/p B/L breast cyst removed X7; Left breast lumpectomy with sentinel lymph node biopsy 01/21/2019 Dr. Watson
Current smoker, 30+ PYs
Bilateral primary osteoarthritis of knee
History of CVA (cerebrovascular accident)
Type 2 diabetes mellitus with other specified complication, without long-term current use of insulin
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 Ellsworth
Primary osteoarthritis of left knee
Obesity, BMI >30
Sleep apnea, noncompliant w/ CPAP since 2014
Rectal Abscess x 2 removed
History of bariatric surgery/LAP band removed
Hearing loss on R
RT Carpal tunnel release
SELAM/BSO
B/L Cataract Surgery w/ lens placement
Plan
Currently saturating >90% on RA, she has been weaned off O2 since admission
Prior history of lung disease is noted including --JOSE ANTONIO not on CPAP, current smoker
She has never been seen by pulmonary, no prior PFTs for review
Suspect patient has PNA with underlying chronic bronchiectasis
CXR/CT obtained indicating similar appearance, mild findings at [facility], this to be seems unchanged
Was on IV abx, but can transition to PO course
Other imaging reviewed--last LDCT in 2021 (no nodules appreciated)
Ongoing smoking noted, she has history of 30PYs of total smoking
Encouraged smoking cessation
Discussed right upper extremity DVT, IV line removed
We discussed that treatment with upper extremity superficial VTEs is usually removing IV only--but she found that dismissive
Prior ECHO results are reviewed indicating normal function
proBNP 03/10/2025 437
Negative troponin
Smoking history noted--would need to resume yearly screening CTs
Smoking cessation
Patient has a history of obstructive sleep apnea, she is not compliant with CPAP
BiPAP has been arranged while inpatient
Weight loss measures recommended
Obesity likely contributing to respiratory symptoms
Will need outpatient pulmonary evaluation in our office for PFTs and 6MWT
Reviewed with patient
Risk factors assessed for underlying sleep disordered breathing also noted, recommend outpatient PSG/sleep evaluation
We will leave information in the chart
Discharge planning per team, can otherwise proceed if patient is agreeable in AM
Diagnostic Data
Chest X-Ray: 03/13/25-linear band noted at [facility], overall similar to prior testing
03/10/25- Opacities in the basilar aspects of the bilateral lower lobes, left greater than right. No pleural effusion or pneumothorax. The cardiomediastinal silhouette is normal. Small hiatal hernia. Chronic degenerative changes of the spine.
11/23/22- No radiographic evidence for acute cardiopulmonary disease.
CT Scan: CHEST 03/10/25- 1. No pulmonary embolism identified.
2. Small amount of bibasilar consolidation with associated bronchial wall thickening and filling defects within bronchioles to the basal segments of the bilateral lower lobes, more pronounced on the left. Most likely related to bronchopneumonia.
Aspiration would also be a differential consideration.
3. Mild concentric wall thickening of the esophagus, question esophagitis.
US RUE - There is superficial thrombus within the right cephalic vein with occlusive thrombus at the level of the antecubital fossa and proximal forearm. There is additional nonocclusive thrombus more distally within the cephalic vein.
Echo: 10/04/21- Frequent PVC's noted. Normal biventricular size and systolic function without regional wall motion abnormality. Estimated LVEF 55%. Mild concentric left ventricular hypertrophy. Normal diastolic function. Mild mitral regurgitation.
Trace tricuspid regurgitation. Normal PASP. No prior study available for comparison.
PFT's:
Reports and relevant images were personally reviewed.
Total time spent on this consultation __75__ minutes which includes review of history, physical exam, medications, laboratory data, personal review of imaging, extensive review of outpatient records, discussion with care team and respiratory therapy.
[2025-03-13 15:30] VITALS: BP 130/70
--- NOTE | 2025-03-13 16:41 | PTCARENOTE ---
Warm compresses applied to pt's RT lower arm x 2 during this shift.
--- NOTE | 2025-03-13 17:27 | W.DCSUMMARY ---
Discharge Summary
Discharge Data
Date of Admission: 03/10/25
Date of Discharge: 03/13/25
Total time spent discharging patient (in min): 42
-
Pending Results: No
Hospital Course
74 y/o female with past medical history significant for prior TIA, hypertension and diet-controlled Diabetes Mellitus, who presented to the [facility] ED complaining of chest pain and dyspnea that woke her from sleep. Patient reported recent cough/cold
symptoms about 10 days prior to presentation. CTA chest showed no pulmonary embolism, but showed bibasilar pneumonia. Patient was started on antibiotics for pneumonia. Patient had right forearm swelling and redness (suspected from IV lines and iV
access), ultrasound confirmed superficial venous thrombosis, supportive management was recommended. Patient's repeat chest x-ray was worse per radiologist's report, pulmonary evaluation was requested who mentioned chest x-ray was actually okay,
similar to previous. Patient was doing better and stable for discharge.
Discharge Plan
-
Patient Disposition: Home (Routine Discharge)
Discharge Diagnosis/Procedures: Bilateral Pneumonia
Bronchiectasis
Right Upper Extremity Superficial Vein Thrombosis -- superficial thrombus within the right cephalic vein with occlusive thrombus at the level of the antecubital fossa and proximal forearm; There is additional nonocclusive thrombus more distally
within the cephalic vein (as per the radiologist's report)
Sepsis secondary to pneumonia
Current Tobacco Smoking
Atypical Chest Pain
Mild right forearm discomfort and erythema from the intravenous line and IV insertion in that area previously
Superficial Venous Thrombosis
Esophageal wall thickening
History of reflux and sometimes sensation of globus and food getting stuck
ASCVD / Prior TIA
Type 2 Diabetes Mellitus
Bipolar Disorder
Obesity due to excess calories
Adenomatous polyp of colon, Duodenum tumor removal (12/2018)
Breast Cancer
Obesity
History of bariatric surgery/LAP band removed
Condition: Good
Diet: Low Fat, Low Cholesterol, Low Sodium and Diabetic, Carb Controlled
Activity: As tolerated
Blood Work: CBC, CMP and Magnesium with your primary care provider's office in 2 to 3 days
Activity Restrictions/Additional Instructions:
Closely follow-up with your account manager relief since you had mild concentric wall thickening of the esophagus, possibly related to your history of esophagitis.
Your right upper extremity superficial venous thrombosis needs elevation of the arm when possible, and warm/cool compresses. Follow-up with your primary care provider by
03/16/25 regarding this.
Referrals:
Damir Duggan MD [Active, Pulmonary Medicine]
Referral Note: 4-6 weeks, PFT w/ visit
Maria Esther Renee NP [Family Provider, Internal Medicine] - in less than 1 week
Referral Note: Hospitalization Follow-Up
Belkis Ribeiro MD [Active, Gastroenterology] - in one to two weeks
Referral Note: Esophageal Wall Thickening on hospital imaging
Additional Discharge Medication Instructions: Metformin and Mounjaro are both on hold until you follow-up and recheck lab-work with your primary care provider.
Pantoprazole is on hold until the day after you finish your Cefpodoxime antibiotics.
Cefpodoxime and Azithromycin are new antibiotics.
Naproxen stopped given potential side effects as discussed.
Prescriptions:
New
cefpodoxime 200 mg tablet
200 mg PO Q12H Qty: 7 0RF
Rx Instructions:
First dose on 03/13/25 evening
guaifenesin 600 mg Tablet Extended Release 12hr
600 mg PO Q12 Qty: 10 0RF
azithromycin 250 mg Tablet
250 mg PO DAILY Qty: 1 0RF
Rx Instructions:
1 more dose on 03/14/25
Continued
biotin 1 mg Tablet
1 mg PO DAILY Qty: 0
cholecalciferol (vitamin D3) [Vitamin D3] 25 mcg (1,000 unit) Tablet
25 mcg PO QPM Qty: 0
clopidogrel 75 mg tablet
75 mg PO QPM
lamotrigine [Lamictal] 150 mg Tablet
75 mg PO Q48H@1999
lamotrigine [Lamictal] 150 mg Tablet
150 mg PO Q48H@1999
cyanocobalamin (vitamin B-12) 1,000 mcg Tablet
1,000 mcg PO QPM
magnesium oxide 400 mg magnesium Tablet
400 mg PO HS
Held
pantoprazole [Protonix] 40 mg Tablet,Delayed Release (Dr/Ec)
40 mg PO DAILYPRN PRN (Reason: GERD)
Hold Instructions: Resume on 03/17/25.
metformin 500 mg Tablet Extended Release 24 Hr
500 mg PO BID@
Hold Instructions: Resume on 03/20/25. Discuss with your outpatient primary care provider regarding exactly when you can resume this medication.
Mounjaro 2.5 mg/0.5 mL Pen Injector
2.5 mg SC WE
Hold Instructions: Resume on 03/22/25. Discuss with your outpatient provider exactly when you can resume this medication.
Rx Instructions:
for 4 weeks
Discontinued
naproxen sodium [Aleve] 220 mg Tablet
220 mg PO Q8HPRN PRN (Reason: MILD PAIN)
Discharge Orders:
Discharge Patient (As Directed); Ordered 03/13/25
Ordered By: Joe Jeter
Discharge Date and Time
Discharge Date/Time: 03/13/25 17:43
Print Language: DOMINICAN
== END 2025-03-13 17:43 | disposition home or self-care (01) | DRG 871 ==
LOC: 4 WEST ACU 07:44
PROVIDERS: Internal Medicine; ADMITTING PHYSICIAN Hospitalist; ATTENDING PHYSICIAN Hospitalist; CONSULT PHYSICIAN Internal Medicine; EMERGENCY PHYSICIAN Emergency Medicine; FAMILY PHYSICIAN Internal Medicine
PROC: 5A09357 Assistance with Respiratory Ventilation, Less than 24 Consecutive Hours, Continuous Positive Airway Pressure (ICD-10-PCS; 2025-03-11)
DX: A41.9 Sepsis, unspecified organism (principal); J18.9 Pneumonia, unspecified organism; I82.611 Acute embolism and thrombosis of superficial veins of right upper extremity; J47.0 Bronchiectasis with acute lower respiratory infection; F17.200 Nicotine dependence, unspecified, uncomplicated; Z86.73 Personal history of transient ischemic attack (TIA), and cerebral infarction without residual deficits; I25.10 Atherosclerotic heart disease of native coronary artery without angina pectoris; F31.9 Bipolar disorder, unspecified; E66.09 Other obesity due to excess calories; Z68.34 Body mass index [BMI] 34.0-34.9, adult; Z86.0101 Personal history of adenomatous and serrated colon polyps; Z98.84 Bariatric surgery status; I10 Essential (primary) hypertension; Z79.02 Long term (current) use of antithrombotics/antiplatelets; Z86.000 Personal history of in-situ neoplasm of breast; E78.00 Pure hypercholesterolemia, unspecified; G47.30 Sleep apnea, unspecified; Z91.199 Patient's noncompliance with other medical treatment and regimen due to unspecified reason; Z79.84 Long term (current) use of oral hypoglycemic drugs; H91.91 Unspecified hearing loss, right ear; I48.91 Unspecified atrial fibrillation; K21.00 Gastro-esophageal reflux disease with esophagitis, without bleeding; M17.0 Bilateral primary osteoarthritis of knee; Z88.1 Allergy status to other antibiotic agents; Z96.642 Presence of left artificial hip joint; Z98.42 Cataract extraction status, left eye; Z98.41 Cataract extraction status, right eye; F41.9 Anxiety disorder, unspecified; G47.33 Obstructive sleep apnea (adult) (pediatric)
CPT/HCPCS: 71046; 71275; 80048; 80053; 80061; 82962; 83036; 83880; 84484; 85025; 85027; 87040; 87449; 87502; 87811; 87899; 92610; 93005; 93971; 94640; 94660; 96365; 96375; 99285; Q9967

== ENCOUNTER → 2025-05-29 22:00 | Outpatient (REF) | payer MEDICARE, OTHER, SELFPAY | LOC: DHSLP 22:00 | PROVIDERS: ATTENDING PHYSICIAN Internal Medicine Critical Care Medicine; FAMILY PHYSICIAN Internal Medicine | DX: G47.33 Obstructive sleep apnea (adult) (pediatric) (principal) | CPT/HCPCS: 95800 ==